=== PATIENT | male | born 1995 | race Two or more races ===

== ENCOUNTER 2020-05-01 23:11 | Emergency (ER) | payer SELFPAY ==
[~2020-05-01] VITALS: Ht 162.6 cm; Wt 81.6 kg
[2020-05-01] MEDS ORDERED: Ketorolac 60mg Inj IM ONE (23:30)
[2020-05-01 23:40] VITALS: BP 147/95
[2020-05-01] MEDS ORDERED: ACETAMINOP160 MG/54 ORAL (23:52)
[2020-05-01] MEDS ORDERED: IBUPROFEN600 M1 ORAL (23:52)
[2020-05-02 00:11] VITALS: BP 132/88
--- NOTE | 2020-05-02 03:23 | Emergency Room Report ---
History of Present Illness General Chief Complaint: Upper Extremity Injury Source: Patient Present Illness HPI Patient is a 24-year-old male who presented after increased left shoulder pain after tripping and falling. Injury occurred just prior to arrival. He had prior dislocations to the opposite shoulder. He reported having increased pain with movement. Pain was sharp in nature. Denies any other locations of injury at this time. Denies any numbness or weakness. Allergies: Coded Allergies: No Known Allergies (Unverified , 05/01/20) COVID-19 Screening Contact w/high risk pt: No Experienced COVID-19 symptoms?: No COVID-19 Testing performed SUPERVISOR OF GUIDANCE AND TESTING: No Patient History Past Medical History: see triage record Reviewed Nursing Documentation: PMH: Agreed; PSxH: Agreed Review of Systems All Other Systems: negative except mentioned in HPI Physical Exam Vital Signs Date Time Temp Pulse Resp B/P (MAP) Pulse Ox O2 Delivery O2 Flow Rate FiO2 05/01/20 23:18 99.0 74 22 147/95 (112) 96 Room Air General Appearance: well appearing, no apparent distress, alert, GCS 15 Head: normocephalic, atraumatic ENT: hearing grossly normal, normal voice Neck: full range of motion, supple Respiratory: no respiratory distress, speaking full sentences Musculoskeletal: decreased range of mation - Decreased range of motion to the left shoulder, anterior fullness Neurologic: alert, motor strength/tone normal, 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 Differential diagnosis include was not limited to fracture, dislocation, contusion, AC separation among others. X- ray imaging was ordered to patient's recent trauma. X-ray imaging showed anterior dislocation. Patient was given pain medications. Shoulder was reduced with Stout technique. Patient tolerated this well. Post procedure x-ray showed adequate reduction. Patient was placed in a sling. He is advised to follow-up with orthopedics. He was advised to return if worse. Last Vital Signs Date Time Temp Pulse Resp B/P (MAP) Pulse Ox O2 Delivery O2 Flow Rate FiO2 05/02/20 00:11 98.7 72 18 132/88 98 Room Air Status: improved Disposition: HOME, SELF-CARE Condition: Stable Scripts Acetaminophen* (ACETAMINOPHEN*) 160 Mg/5 Ml Solution 320 MG ORAL Q6H PRN for Mild Pain/Temp > 100.5, #30 ML Prov: Ritesh Wong MD 05/01/20 Ibuprofen* (MOTRIN*) 600 Mg Tablet 600 MG ORAL Q8H PRN for FOR PAIN, #20 TAB 0 Refills Prov: Ritesh Wong MD 05/01/20 Departure Forms: Return to Work Return to Work in (Days): 2 Other Restrictions: no overhead work using left hand Patient Instructions: Shoulder Dislocation, [id number] Additional Instructions: Follow up with orthopedics. Return if worse. Ritesh Wong MD May 02, 2020 03:23
--- NOTE | 2020-05-02 13:02 | Diagnostic Imaging Report ---
EXAM: X-RAY XRAY Shoulder Compl L CLINICAL HISTORY: Reason For Exam: PAIN. COMPARISON: 05/01/2020 FINDINGS: Total of 3 views of the left shoulder were obtained. The glenohumeral joint is now in anatomic alignment after reduction. There is a Hill-Sachs deformity demonstrated. AC joint is anatomic. Surrounding soft tissue is normal. IMPRESSION: ANATOMIC ALIGNMENT AFTER REDUCTION. HILL-SACHS DEFORMITY.
--- NOTE | 2020-05-02 13:03 | Diagnostic Imaging Report ---
EXAM: X-RAY XRAY Shoulder Compl L CLINICAL HISTORY: Shoulder pain. COMPARISON: None FINDINGS: Total of 3 views of the left shoulder were obtained. There is anterior dislocation of the shoulder with the humeral head sitting in a subcoracoid position. There is no fracture, bony lesions or erosions. AC joint is congruent. Surrounding soft tissue is normal. IMPRESSION: ANTERIOR DISLOCATION OF THE LEFT SHOULDER.
== END 2020-05-02 00:04 | disposition home or self-care (01) ==
LOC: EMR 23:36
DX: S43.005A Unspecified dislocation of left shoulder joint, initial encounter (principal); W01.0XXA Fall on same level from slipping, tripping and stumbling without subsequent striking against object, initial encounter; Y92.9 Unspecified place or not applicable
CPT/HCPCS: 96372; 99283

== ENCOUNTER → 2020-05-02 | Emergency (ER) | payer SELFPAY ==
[~2020-05-02] VITALS: Ht 162.6 cm; Wt 81.6 kg
[~2020-05-02] MED LIST: ACETAMINOP160 MG/54 ORAL; IBUPROFEN600 M1 ORAL
[2020-05-02 09:16] VITALS: BP 142/89
--- NOTE | 2020-05-02 09:58 | Emergency Room Report ---
History of Present Illness General Chief Complaint: Upper Extremity Injury Source: Patient Present Illness HPI Patient had an anterior shoulder dislocation that was reduced last night. It popped out again when he went home. He is complaining of pain without any numbness. Shoulder was reduced with Stout technique last night. It has recurred after he was holding onto a dog leash and the dog jerked forward. He took off the shoulder immobilizer. He reached his hand over his head and the shoulder popped out again. The pain is rated 8/10, aching and constant without radiation. He complains of some numbness in the anterior shoulder area. There is no numbness of the hand. He is never had this problem before. Allergies: Coded Allergies: No Known Allergies (Unverified , 05/01/20) COVID-19 Screening Contact w/high risk pt: No Experienced COVID-19 symptoms?: No COVID-19 Testing performed CAN DRAGGER: No Patient History Past Medical History: see triage record Social History: Denies: smoking Social History Narrative Currently unemployed Reviewed Nursing Documentation: PMH: Agreed; PSxH: Agreed Nursing Documentation-PM Past Medical History: No History, Except For Review of Systems Constitutional: Denies: fever Respiratory: Denies: shortness of breath Musculoskeletal: Reports: see HPI Skin: Denies: rash Neurological: Reports: see HPI Physical Exam Vital Signs Date Time Temp Pulse Resp B/P (MAP) Pulse Ox O2 Delivery O2 Flow Rate FiO2 05/02/20 09:06 98.4 80 18 148/96 (113) 97 Room Air Sp02 EP Interpretation: reviewed, normal General Appearance: well appearing, no apparent distress, GCS 15 Head: normocephalic Eyes: bilateral eye normal inspection, bilateral eye PERRL ENT: moist mucus membranes Neck: normal inspection Respiratory: normal inspection Cardiovascular #1: regular rate, rhythm Cardiovascular #2: 2+ radial (L) Gastrointestinal: normal inspection Musculoskeletal: gait/station normal, tenderness - Left shoulder, decreased range of mation - Left shoulder, other - Dimpling of acromioclavicular area Neurologic: alert, motor strength/tone normal, other - Alleged numbness anterior shoulder area not over deltoid Psychiatric: mood/affect normal Skin: no rash, warm/dry Procedures Joint Reduction Joint Reduction : Consent: Verbal Joint Reduction Site: shoulder (L) Procedural Sedation: No Reduction Attempts: One Pre-Procedure NV Exam: Yes Post-Procedure NV Exam: Yes Post Joint Reduction Film: joint reduced Patient Tolerated: Well Complications: None Progress Left shoulder reduced with Stout technique. Tolerated well. Medical Decision Making Diagnostic Impression: Primary Impression: Dislocation, shoulder, anterior Qualified Codes: S43.015A - Anterior dislocation of left humerus, initial encounter ER Course Patient 4 presents with shoulder pain post reduction of anterior shoulder dislocation earlier. Clinically the patient appears to have a dislocation again. Analgesia administered. See procedure notes. Shoulder reduced with Stout maneuver. X-ray without fracture. Some numbness initially reported. Numbness resolved. Shoulder immobilizer placed and examined by me. Position excellent with reduction in pain and normal neurovascular exam by me. Discussed precautions with patient. Also discussed treatment plan. Patient stable for outpatient observation and treatment. Other X-Ray Diagnostic Results Other X-Ray Diagnostic Results : X-Ray ordered: Left shoulder # of Views/Limited Vs Complete: 4 View Indication: Other Interpretation: no dislocation, no soft tissue swelling, no fractures Impression: No acute disease Electronically Signed by: Electronically signed by Denis Leyva MD Last Vital Signs Date Time Temp Pulse Resp B/P (MAP) Pulse Ox O2 Delivery O2 Flow Rate FiO2 05/02/20 11:15 98.2 79 18 139/84 99 Room Air Status: improved Disposition: HOME, SELF-CARE Condition: Improved Referrals: NOT CHOSEN IPA/,REFERRING (PCP) Denis Leyva MD May 02, 2020 09:57
[2020-05-02 11:15] VITALS: BP 139/84
--- NOTE | 2020-05-02 12:39 | Diagnostic Imaging Report ---
EXAM: X-RAY XRAY Shoulder Compl L CLINICAL HISTORY: Shoulder pain. COMPARISON: None FINDINGS: Total of 3 views of the left shoulder were obtained. Alignment is anatomic after reduction. There appears to be a Hill-Sachs deformity near the radial tuberosity region. AC joint is congruent. Surrounding soft tissue is normal. IMPRESSION: APPARENT HILL-SACHS DEFORMITY IN THE HUMERAL HEAD AFTER REDUCTION. GLENOHUMERAL JOINT NOW APPEARS ANATOMIC.
== END | disposition home or self-care (01) ==
LOC: EMR 09:53
DX: S43.015A Anterior dislocation of left humerus, initial encounter (principal); X58.XXXA Exposure to other specified factors, initial encounter; Y92.9 Unspecified place or not applicable
CPT/HCPCS: 99283